=== PATIENT | female | born 1990 | race Caucasian/White ===

== ENCOUNTER 2019-03-01 13:49 | Inpatient (IN) | payer MEDICAID, OTHER ==
[~2019-03-01] VITALS: Ht 162.6 cm; Wt 107.5 kg
[~2019-03-01 13:49] MED LIST: AMOX500C2 PO; HYDR-4011 PO
[2019-03-01 14:40] VITALS: Ht 162.6 cm; Wt 107.5 kg
[2019-03-01] MEDS ORDERED: SOD CHLORIDE 0.9% 1,000 ML IV STA (15:20)
[2019-03-01] MEDS ORDERED: KETOROLAC 30 MG INJ IV STA (15:20)
--- NOTE | 2019-03-01 15:29 | ERD ---
ER Documentation Chief Complaint Chief Complaint c/o lower back pain x1 day. Denies injury HPI 28-year-old female presents with complaint of lower back pain, dysuria, and hematuria for the past day. States that the back pain is located mostly in the right flank area. States that the pain was very intense this morning she was unable to get out of bed. States the pain is currently 7 out of 10. States that she had a fever yesterday but denies any current fever. Denies any treatments. Denies any vomiting, diarrhea, abdominal pain. ROS All systems reviewed and are negative except as per history of present illness. Medications Home Meds Active Scripts Hydrocodone/Acetaminophen ([place] 5-325 Tablet) 1 Each Tablet, 1 TAB PO Q6H PRN for PAIN, #7 TAB Prov:POLLY WAN PA-C 06/19/16 Amoxicillin* (Amoxicillin*) 500 Mg Cap, 500 MG PO TID for 7 Days, CAP Prov:POLLY WAN PA-C 06/19/16 Reported Medications [None] No Conflict Check 02/05/12 Allergies Allergies: Coded Allergies: No Known Drug Allergies (Verified Allergy, 07/07/13) Uncoded Allergies: NONE (Allergy, 02/05/12) PMhx/Soc Medical and Surgical Hx: pt denies Medical Hx, pt denies Surgical Hx History of Surgery: No Anesthesia Reaction: No Hx Neurological Disorder: No Hx Respiratory Disorders: No Hx Cardiac Disorders: No Hx Psychiatric Problems: No Hx Miscellaneous Medical Probl: No Hx Alcohol Use: No Hx Substance Use: No Hx Tobacco Use: No Smoking Status: Never smoker FmHx Family History: No diabetes, No coronary disease, No other Physical Exam Vitals Vital Signs Date Temp Pulse Resp B/P (MAP) Pulse Ox O2 O2 Flow FiO2 Time Delivery Rate 03/02/19 99.0 124 17 115/58 96 Room Air 02:42 (77) 03/02/19 99.7 126 18 110/55 96 Room Air 01:10 (73) 03/01/19 99.2 116 18 116/57 100 Room Air 18:01 (76) 03/01/19 98.7 110 20 116/54 100 14:40 (74) Physical Exam Const: No acute distress Head: Atraumatic Eyes: Normal Conjunctiva ENT: Normal External Ears, Nose and Mouth. Neck: Full range of motion. No meningismus. Resp: Clear to auscultation bilaterally Cardio: Regular rate and rhythm, no murmurs Abd: Soft, non tender, non distended. Normal bowel sounds Skin: No petechiae or rashes Back: Right-sided CVA tenderness. No midline tenderness. Ext: No cyanosis, or edema Neur: Awake and alert Psych: Normal Mood and Affect Result Diagram: 03/01/19 1538 03/01/19 1538 Results 24 hrs Laboratory Tests Test 03/01/19 15:38 03/01/19 15:44 03/01/19 18:05 03/01/19 20:11 White Blood Count 15.2 10^3/ul Red Blood Count 3.79 10^6/ul Hemoglobin 10.3 g/dl Hematocrit 31.1 % Mean Corpuscular 82.1 fl Volume Mean Corpuscular 27.2 pg Hemoglobin Mean Corpuscular 33.1 g/dl Hemoglobin Concent Red Cell 12.5 % Distribution Width Platelet Count 250 10^3/UL Mean Platelet 10.1 fl Volume Immature 1.500 % Granulocytes % Neutrophils % 84.5 % Lymphocytes % 5.1 % Monocytes % 8.6 % Eosinophils % 0.1 % Basophils % 0.2 % Nucleated Red 0.0 /100WBC Blood Cells % Immature 0.230 10^3/ul Granulocytes # Neutrophils # 12.8 10^3/ul Lymphocytes # 0.8 10^3/ul Monocytes # 1.3 10^3/ul Eosinophils # 0.0 10^3/ul Basophils # 0.0 10^3/ul Nucleated Red 0.0 10^3/ul Blood Cells # Urine Color GRISELDA Urine Clarity TURBID Urine pH 6.0 Urine Specific 1.011 [place] Urine Ketones TRACE mg/dL Urine Nitrite POSITIVE mg/dL Urine Bilirubin NEGATIVE mg/dL Urine Urobilinogen 1+ mg/dL Urine Leukocyte 3+ Ashley/ul Esterase Urine Microscopic 4 /HPF RBC Urine Microscopic > 182 /HPF WBC Urine Squamous MODERATE /HPF Epithelial Cells Urine Bacteria MANY /HPF Urine Hemoglobin 1+ mg/dL Urine Glucose 3+ mg/dL Urine Total 2+ mg/dl Protein Sodium Level 136 mmol/L Potassium Level 3.5 mmol/L Chloride Level 106 mmol/L Carbon Dioxide 22 mmol/L Level Anion Gap 8 Blood Urea 3 mg/dl Nitrogen Creatinine 0.44 mg/dl Est Glomerular > 60 mL/min Filtrat Rate mL/min Glucose Level 139 mg/dl Calcium Level 8.7 mg/dl Total Bilirubin 1.0 mg/dl Direct Bilirubin 0.00 mg/dl Indirect Bilirubin 1.0 mg/dl Aspartate Amino 19 IU/L Transf (AST/SGOT) Alanine 29 IU/L Aminotransferase ( ALT/SGPT) Alkaline 114 IU/L Phosphatase Total Protein 7.0 g/dl Albumin 3.5 g/dl Globulin 3.50 g/dl Albumin/Globulin 1.00 Ratio Beta HCG, 00849.0 mIU/ml Quantitative POC Beta HCG, POSITIVE Qualitative Lactic Acid Level 1.2 mmol/L 0.8 mmol/L Current Medications Medications Dose Sig/Lupillo Start Time Status Last (Trade) Ordered Route PRN Stop Time Admin Dose Reason Admin Ketorolac 30 mg ONCE STAT 03/01/19 DC Tromethamine IV 15:20 (Toradol) 03/01/19 15:52 Sodium 1,000 ml @ Q1H STAT 03/01/19 DC 03/01/19 Chloride 1,000 mls/hr IV 15:20 15:45 03/01/19 16:19 Ceftriaxone 50 ml @ ONCE ONCE 03/01/19 DC 03/01/19 Sodium 100 mls/hr IVPB 18:00 18:13 03/01/19 18:29 Morphine 2 mg ONCE STAT 03/01/19 DC 03/01/19 Sulfate IV 18:49 19:06 (morphine) 03/01/19 18:50 Ondansetron 4 mg BRIDGE ORDER 03/01/19 HCl (Zofran PRN IV 20:00 Inj) NAUSEA/VOMITI 03/02/19 19:59 NG 650 mg ER BRIDGE 03/01/19 03/02/19 Acetaminophen PRN PO 20:00 02:39 (Tylenol .MILD PAIN 03/02/19 19:59 Tab) 1-3 OR TEMP Procedures/MDM DIAGNOSTIC IMAGING REPORT Patient: VERNA KENNEDY : 1990 Age: 28 Sex: F MR #: [id number] DOS: 03/01/19 1554 Ordering MD: GLORIA ATKINS Location: FT Room/Bed: PROCEDURE: US OB. CLINICAL INDICATION: Flank pain TECHNIQUE: Multiple sonographic images of the pelvis and gravid uterus were obtained. The images were reviewed on a PACS workstation. COMPARISON: No prior studies are available for comparison. FINDINGS: Gestation: Single live intrauterine gestation. Cardiac activity: 150 beats per minute. Presentation: Breech Placenta: Location: Annular Appearance: No previa or abruption. Measurements: BPD = 7.6 cm, 30 weeks and 3 days HC = 28 cm, 30 weeks and 5 days AC = 29.7 cm, 33 weeks and 5 days FL = 6.1 cm, 31 weeks and 5 days Gestational Age: AUA estimated gestational age: 31 weeks 5 days AUA estimated date of delivery: 04/28/19 The EFW = 1986 g RPTAT: AA IMPRESSION: Single live intrauterine gestation of 31 weeks 5 days by ultrasound criteria. .Praveen Jiang MD, MD Date Time Electronically viewed and signed by .Praveen Jiang MD, on 03/01/2019 17:12 .S/ CC: GLORIA ATKINS [phone] MDM: There was concern for possible pyelonephritis versus nephrolithiasis so UA and CT were ordered. However, urine preg came back positive. CT was therefore canceled (and toradol) and abdominal ultrasound was performed which showed a fetus of gestational age of 31 weeks. Patient stated she had no idea that she was even . It was now determined that she was a female. In addition, UA was positive for UTI. Given patient's complaint of flank pain as well as white count there is concern for pyelonephritis. Patient does not appear to be in active labor at this time. Case was discussed with my supervising physician Dr. Silva and he stated that he would take over care of patient. Departure Diagnosis: Primary Impression: Pyelonephritis affecting Trimester: third trimester Qualified Codes: O23.03 - Infections of kidney in , third trimester Condition: Serious GLORIA ATKINS March 01, 2019 15:29
[2019-03-01] MEDS ORDERED: CEFTRIAXONE 1 GM/50 ML (PMX) 50 ML IVPB ONE (18:00)
[2019-03-01] MEDS ORDERED: morphine 2 MG INJ IV STA (18:49)
[2019-03-01] MEDS ORDERED: ACETAMINOPHEN 325 MG TAB PO PRN (20:00)
[2019-03-01] MEDS ORDERED: ONDANSETRON 4 MG INJ IV PRN (20:00)
--- NOTE | 2019-03-01 20:04 | QN ---
Documentation Comment I spoke with Dr. Fagan the OB doctor databases software consultant for admission to a OB bed for new onset at 31 weeks and acute pyelonephritis. MEGHANN GOULD MD March 01, 2019 20:04
[2019-03-02 02:42] VITALS: BP 115/58; PULSE 124; RESP 17
[2019-03-02] MEDS ORDERED: HYDROCODONE/APAP (5/325) TAB PO PRN (08:00)
[2019-03-02] MEDS ORDERED: SOD CHLORIDE 0.9% 1,000 ML IV SCH (09:00)
[2019-03-02] MEDS ORDERED: ACETAMINOPHEN 325 MG TAB PO PRN ×2 (09:00)
== END 2019-03-02 08:08 | disposition home or self-care (01) | DRG 833 ==
LOC: FTE 13:49 → L-D 19:33
PROVIDERS: ADMIT Obstetrics & Gynecology Obstetrics; ATTEND Obstetrics & Gynecology Obstetrics
DX: O23.03 Infections of kidney in pregnancy, third trimester (principal); O09.33 Supervision of pregnancy with insufficient antenatal care, third trimester; Z3A.31 31 weeks gestation of pregnancy
CPT/HCPCS: 36415; 76805; 80053; 81001; 81025; 83605; 84702; 85025; 87086; 96361; 96365; 96375; J0696; J2270; J7030

== ENCOUNTER 2019-03-02 03:27 | Inpatient (IN) | payer MEDICAID ==
[~2019-03-02] VITALS: Ht 157.5 cm; Wt 107.5 kg
[2019-03-02] MEDS ORDERED: SOD CHLORIDE 0.9% 1,000 ML IV ONE (05:30)
[2019-03-02] MEDS: SOD CHLORIDE 0.9% 1,000 ML IV SCH ×5 (06:30→20:54)
[2019-03-02] MEDS: PRENATAL VITAMIN PO SCH (09:29)
[2019-03-02] MEDS ORDERED: LACTATED RINGER'S 1,000 ML IV ONE (09:30)
[2019-03-02] MEDS: ACETAMINOPHEN 325 MG TAB PO PRN ×2 (09:30→15:46)
[2019-03-02 09:54] VITALS: Ht 157.5 cm; Wt 107.5 kg
--- NOTE | 2019-03-02 10:55 | HP ---
Date/Time of Note Date/Time of Note DATE: 03/02/19 TIME: 10:50 OB - History Hx of Present Free Text/Dictation 28-year-old G4, P3 female with history of x3 presented to emergency room with complaint of flank pain in the right side. She denies any leaking of fluid, vaginal bleeding or decreased movement. She was not aware that she is . Ultrasound in the emergency room she is 31 weeks and 5 days. Patient reports fever and chills. Exam was consistent with pyelonephritis and patient was admitted for treatment of pyelonephritis. Patient was admitted to antepartum service on labor and delivery. No care. : 4 Para: 3 Care: None Other Concerns: No care. Patient was unaware that she is Past Family/Social History * Past Medical, Surgical, Family and Obstetric Histories reviewed from chart. Patient denies any past medical history. Past surgical history significant for history of x3 Denies any allergy history Patient has never been a smoker, does not drink alcohol or using any drugs. OB Admission Exam Vital Signs Vital Signs Vital Signs Date Temp Pulse Resp B/P (MAP) Pulse Ox O2 O2 Flow FiO2 Time Delivery Rate 03/02/19 101.2 09:30 Physical Exam HEENT: WNL Heart: Rhythm Normal Lungs: Clear Abdomen: WNL (Gravid, fundal height consider gestational age by ultrasound) Extremities: Edema (1+ bilateral symmetric pitting edema) Cervical Dilatation: None Effacement: 0% Membranes: Intact Accelerations: Accelerations Present Decelerations: No Decelerations Varibility: Moderate Contractions on Admission: >10 Minutes Apart Intensity: Mild Last 72 hourBlood Glucose PROCEDURE: US OB biophysical profile. CLINICAL INDICATION: Decreased movements. No care. TECHNIQUE: Multiple sonographic images of the pelvis were obtained. The images were reviewed on a PACS workstation. COMPARISON: 03/01/2019 FINDINGS: Cervix is closed measuring 4.1 cm in length. There is a live intrauterine gestation. There is a normal amount of amniotic fluid with an SUSAN = 14.7 cm. Maximal volume pocket = 4.4 cm. Position: Cephalic. Cardiac activity is present with 137 beats per minute. The placenta is right lateral. No evidence of placenta previa or abruption. Biophysical profile: movement 2/2 tone 2/2. breathing 2/2 SUSAN 2/2 Total 88 IMPRESSION: Normal biophysical profile. RPTAT:AAJJ Last 72 hours Lab Results PROCEDURE: US OB biophysical profile. CLINICAL INDICATION: Decreased movements. No care. TECHNIQUE: Multiple sonographic images of the pelvis were obtained. The images were reviewed on a PACS workstation. COMPARISON: 03/01/2019 FINDINGS: Cervix is closed measuring 4.1 cm in length. There is a live intrauterine gestation. There is a normal amount of amniotic fluid with an SUSAN = 14.7 cm. Maximal volume pocket = 4.4 cm. Position: Cephalic. Cardiac activity is present with 137 beats per minute. The placenta is right lateral. No evidence of placenta previa or abruption. Biophysical profile: movement 2/2 tone 2/2. breathing 2/2 SUSAN 2/2 Total 8/8 IMPRESSION: Normal biophysical profile. RPTAT:AAJJ OB Assessment/Plan Other Assessment: IUP at 31 weeks and 5 days Right flank pain, fever, abnormal urine analysis Exam consistent with pyelonephritis No care No evidence of labor Patient was admitted to labor and delivery for management of pyelonephritis Urine was sent for culture and sensitivity Patient will receive antibiotic, Rocephin started. Continuous monitoring Consider blood culture if she spikes fever Adequate IV hydration labs Expect improvement of the symptoms within 24 to 48 hours after start IV antibiotics Expectant management. LEONIDES GOMEZ MD March 02, 2019 10:55
[2019-03-02] MEDS: CEFTRIAXONE 1 GM/50 ML (PMX) 50 ML IVPB SCH (17:49)
[2019-03-03] MEDS: ACETAMINOPHEN 325 MG TAB PO PRN ×4 (00:31→20:26)
[2019-03-03] MEDS: SOD CHLORIDE 0.9% 1,000 ML IV SCH ×3 (01:00→16:31)
[2019-03-03] MEDS: PRENATAL VITAMIN PO SCH (13:08)
[2019-03-03] MEDS: CEFTRIAXONE 1 GM/50 ML (PMX) 50 ML IVPB SCH (19:33)
[2019-03-04] MEDS: SOD CHLORIDE 0.9% 1,000 ML IV SCH ×4 (01:00→17:19)
[2019-03-04] MEDS: PRENATAL VITAMIN PO SCH (09:19)
--- NOTE | 2019-03-04 13:49 | QN ---
Documentation Comment 28-year-old 4 para 3 at 32 weeks and 1 day of gestation with estimated date of delivery April 28, 2019 Patient admitted for pyelonephritis currently on IV antibiotics Urine culture pending Urine tox positive for amphetamines Vital signs stable VS - Last 72 Hours, by Label Date Temp Pulse Resp B/P (MAP) Pulse Ox O2 O2 Flow FiO2 Time Delivery Rate 03/03/19 98.4 21:11 03/03/19 98.5 20:26 03/03/19 100.3 05:49 03/03/19 99.6 00:31 03/02/19 102.6 15:46 03/02/19 101.2 09:30 Hematology - 72 Hrs Test 03/02/19 09:55 Hematocrit 27.9 % (37.0-47.0) L Hemoglobin 9.1 g/dl (12.0-16.0) L Mean Corpuscular Hemoglobin 27.5 pg (29.0-33.0) L Mean Corpuscular Hemoglobin Concent 32.6 g/dl (32.0-37.0) Mean Corpuscular Volume 84.3 fl (82.0-101.0) Mean Platelet Volume 10.7 fl (7.4-10.4) H Platelet Count 186 10^3/UL (140-415) # Red Blood Count 3.31 10^6/ul (4.20-5.40) L Red Cell Distribution Width 12.8 % (11.5-14.5) White Blood Count 11.4 10^3/ul (4.8-10.8) #H PROCEDURE: US OB biophysical profile. CLINICAL INDICATION: decreased movements, pyelonephritis TECHNIQUE: Multiple sonographic images of the pelvis were obtained. The images were reviewed on a PACS workstation. COMPARISON: No prior studies are available for comparison. FINDINGS: There is a single live intrauterine gestation. Cardiac activity is present with 128 beats per minute. There is a vertex presentation. The placenta is posterior fundal. There is no evidence of placental abruption. SUSAN = 19.1 cm. Biophysical profile: movement 2/2 tone 2/2. breathing 2/2 SUSAN 2/2 Total 88 RPTAT: AA . IMPRESSION: Normal biophysical profile. . .Praveen Jiang MD, Date Time Electronically viewed and signed by .Praveen Jiang MD, on 03/04/2019 12 :50 .S/ CC: MICHELLE GARCIA MD [id number] Assessment and plan Continue with present management Social service consult pending MICHELLE GARCIA MD March 04, 2019 13:49
[2019-03-04] MEDS: CEFTRIAXONE 1 GM/50 ML (PMX) 50 ML IVPB SCH (19:36)
[2019-03-05] MEDS: SOD CHLORIDE 0.9% 1,000 ML IV SCH (02:35)
--- NOTE | 2019-03-05 07:57 | DS ---
Date/Time of Note Date/Time of Note DATE: 03/05/19 TIME: 07:55 Obstetrical Discharge Record Final Diagnosis Final Diagnosis: not delivered Other Final Diagnosis Pyelonephritis. Complications Infection (right pyelonephritis) Augmentation: No Induction: No Rupture of Membranes: No Condition on Discharge Physical Assessment Last Vitals: Afebrile. VSS Voiding: Yes Bowel Movement: Yes Breast: Soft, non-tender Fundus: Other (gravid) Abdomen and Incision: No CVAT either side. Calf Tenderness: No Patient Condition: VIRGILIO Pedro MD March 05, 2019 07:57
--- NOTE | 2019-03-05 07:58 | PD.PPDC ---
[facility] Discharge Instruction Condition [id number] Patient Condition: [id number] Fair Diet [id number] Diet: [id number] Resume Regular Diet Activity/Restrictions [id number] Activity: [id number] Normal Activity Follow-up Follow-up with Physician: 1, Week/Weeks Provider Information: Needs to find a care clinic as she has not had any care, as of yet. Return to clinic for [id number] [employer]PER[employer]OR Instructions: [id number] Fever greater than 101 Chills Worsening abdominal pain VIRGILIO MARSHALL MD March 05, 2019 07:58
[2019-03-05] MEDS ORDERED: NITR-58 PO (08:01)
== END 2019-03-05 08:57 | disposition home or self-care (01) | DRG 690 ==
LOC: OBT 03:27 → L-D 03:27 → OBT 03:28
PROVIDERS: ADMIT Obstetrics & Gynecology Obstetrics; ATTEND Obstetrics & Gynecology Obstetrics
DX: N12 Tubulo-interstitial nephritis, not specified as acute or chronic (principal); B96.20 Unspecified Escherichia coli [E. coli] as the cause of diseases classified elsewhere; O34.211 Maternal care for low transverse scar from previous cesarean delivery
CPT/HCPCS: 76775; 76817; 76818; 80307; 85025; 85610; 85730; 86592; 86703; 86762; 86850; 86900; 86901; 87086; 87340; 87536; J0696; J7030; J7120

== ENCOUNTER 2019-04-03 16:32 | Outpatient (CLI) | payer SELFPAY ==
[~2019-04-03 16:32] MED LIST changes: -AMOX500C2 PO; -HYDR-4011 PO; +NITR-58 PO
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
--- NOTE | 2019-04-03 20:35 | TRIAGE ---
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 Baseline Change Variability: Moderate 6-25 bpm Accelerations: 10X10 Decelerations: None Category: Category I Datetime: 03/02/2019 11:00 Labor Evaluation Frequency: 0 Monitor Mode: External Pattern: Normal: <= 5 Contractions in 10 Minutes Resting Tone [place]: Relaxed Heart Rate FHR Baseline Rate: LOSS OF INFORMATIONS,ACTIVE BABY Monitor Mode: External US Datetime: 03/02/2019 09:52 Labor Evaluation Frequency: 0 Monitor Mode: External Pattern: Normal: <= 5 Contractions in 10 Minutes Resting Tone [place]: Relaxed Heart Rate FHR Baseline Rate: 180 Monitor Mode: External US FHR Baseline Changes: No Baseline Change Variability: Moderate 6-25 bpm Accelerations: 10X10 Decelerations: None Category: Category I Datetime: 03/02/2019 08:34 Labor Evaluation Frequency: 0 Monitor Mode: External Pattern: Normal: <= 5 Contractions in 10 Minutes Resting Tone [place]: Relaxed Heart Rate FHR Baseline Rate: 170 Monitor Mode: External US FHR Baseline Changes: No Baseline Change Variability: Moderate 6-25 bpm Accelerations: 10X10 Decelerations: None Category: Category I Datetime: 03/02/2019 07:57 Assessment Type: Ongoing Assessment Maternal Assessment Level of Consciousness: Fully Conscious DTR's/Clonus: DTRs 2+; No Clonus Headache: Denies Blurred Vision: No Respiratory Effort: Unlabored; Regular Rhythm; Equal Expansion Breath Sounds, Left: Clear and Equal Breath Sounds, Right: Clear and Equal Nausea/Vomiting: Denies RUQ Epigastric Pain: Denies Lower Extremities Edema: None Degree: None Upper Extremities Edema: None Degree: None Facial Edema: None Fall Risk Assessment History of Falling: (0) No Secondary Diagnosis: (0) No Ambulatory Aid: (0) Bedrest/Nurse Assist IV Therapy: (20) Yes Gait: (0) Normal/Bedrest/Immobile Mental Status: (0) Oriented to Own Ability Fall Score: 20 Fall Risk Score Definition: No Risk: No action required Datetime: 03/02/2019 07:30 Stage of : Antepartum Temperature Route: Oral Monitor Mode: External Duration (sec)2399: 0 Resting Tone [place]: Relaxed Heart Rate FHR Baseline Rate: 170 Monitor Mode: External US FHR Baseline Changes: No Baseline Change Variability: Moderate 6-25 bpm Accelerations: Prolonged Decelerations: None Category: Category I Pain Assessment Pain Scale: 6 Pain Presence: Constant Pain Type: Ache Pain Location: Right Flank Pain Goal: 0 Datetime: 03/02/2019 07:00 Stage of : Antepartum Labor Evaluation Frequency: x3 Monitor Mode: External Duration (sec)2399: 40-100 Quality: Mild Pattern: Normal: <= 5 Contractions in 10 Minutes Resting Tone [place]: Relaxed Heart Rate FHR Baseline Rate: 145 Monitor Mode: External US Variability: Moderate 6-25 bpm Accelerations: 15X15 Datetime: 03/02/2019 06:17 EGA: 31.3 Datetime: 03/02/2019 06:00 Stage of : Antepartum Labor Evaluation Frequency: x1 Monitor Mode: External Duration (sec)2399: 80 Quality: Mild Pattern: Normal: <= 5 Contractions in 10 Minutes Resting Tone [place]: Relaxed Heart Rate FHR Baseline Rate: 140 Monitor Mode: External US Variability: Moderate 6-25 bpm Accelerations: 15X15 Decelerations: Variable Category: Category II Datetime: 03/02/2019 05:52 Stage of : Antepartum Datetime: 03/02/2019 05:11 Stage of : Antepartum Datetime: 03/02/2019 05:00 Stage of : Antepartum Labor Evaluation Frequency: x1 Monitor Mode: External Duration (sec)2399: 40 Quality: Mild Pattern: Normal: <= 5 Contractions in 10 Minutes Resting Tone [place]: Relaxed Heart Rate FHR Baseline Rate: 145 Monitor Mode: External US Variability: Moderate 6-25 bpm Accelerations: 15X15 Decelerations: None Category: Category I Datetime: 03/02/2019 04:13 Temperature Route: Oral Datetime: 03/02/2019 04:00 Stage of : Antepartum Labor Evaluation Frequency: x1 Monitor Mode: External Duration (sec)2399: 60 Quality: Mild Pattern: Normal: <= 5 Contractions in 10 Minutes Resting Tone [place]: Relaxed Heart Rate FHR Baseline Rate: 150 Monitor Mode: External US Variability: Moderate 6-25 bpm Accelerations: 15X15 Decelerations: None Category: Category I Datetime: 03/02/2019 03:15 Stage of : Antepartum Temperature Route: Oral Datetime: 03/02/2019 03:07 Time of Arrival: 03/02/2019 03:04 Arrived By: Stretcher Arrived From: Emergency Dept Datetime: 03/02/2019 03:04 Stage of : Antepartum
== END 2019-04-03 20:10 | disposition home or self-care (01) ==
LOC: OBT 16:32 → L-D 16:36 → OBT 20:10
PROVIDERS: ATTEND Obstetrics & Gynecology
DX: O26.893 Other specified pregnancy related conditions, third trimester (principal); M54.5 Low back pain; Z3A.36 36 weeks gestation of pregnancy
CPT/HCPCS: 76815; 76818; 85460; 86900; 86901; G0463

== ENCOUNTER 2019-04-09 00:43 | Outpatient (CLI) | payer MEDICAID ==
[~2019-04-09] VITALS: Ht 157.5 cm; Wt 118.4 kg
[2019-04-09 00:54] VITALS: Ht 157.5 cm; Wt 118.4 kg
[2019-04-09] MEDS ORDERED: PREN-93 PO (00:54)
[2019-04-09 00:55] VITALS: BP 116/59; PULSE 102; RESP 20
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
== END 2019-04-09 02:06 | disposition home or self-care (01) ==
LOC: OBT 00:43 → L-D 00:44 → OBT 02:06
PROVIDERS: ATTEND Obstetrics & Gynecology
DX: O26.893 Other specified pregnancy related conditions, third trimester (principal); R20.0 Anesthesia of skin; M54.9 Dorsalgia, unspecified; O24.410 Gestational diabetes mellitus in pregnancy, diet controlled; Z3A.36 36 weeks gestation of pregnancy
CPT/HCPCS: 76818; 81001; 87086; Z7500; G0463

== ENCOUNTER 2019-04-10 15:29 | Outpatient (CLI) | payer SELFPAY ==
[~2019-04-10] VITALS: Ht 157.5 cm; Wt 117.1 kg
[~2019-04-10 15:29] MED LIST changes: -NITR-58 PO; +PREN-93 PO
[2019-04-10 15:42] VITALS: Ht 157.5 cm; Wt 117.1 kg
[2019-04-10 15:43] VITALS: BP 114/56; PULSE 96; RESP 19
--- NOTE | 2019-04-10 18:02 | TRIAGE ---
OB Triage Datetime Report Generated by CPN: 04/10/2019 18:01 Datetime: 04/10/2019 17:19 Stage of : OB Triage Level of Consciousness: Keenly Alert, Responsive Frequency: 5UC/HR Monitor Mode: External Duration (sec)2399: 50-120 Quality: Mild Resting Tone [place]: Relaxed FHR Baseline Rate: 135 Monitor Mode: External US Variability: Moderate 6-25 bpm Accelerations: 15X15 Decelerations: None Category: Category I Pain Scale: 0 Pain Goal: 3 Membrane Status: Intact Vaginal Bleeding: None Datetime: 04/10/2019 15:46 Assessment Type: Triage Level of Consciousness: Keenly Alert, Responsive DTR's/Clonus: DTRs 2+; No Clonus Headache: Denies Blurred Vision: No Respiratory Effort: Unlabored; Regular Rhythm; Equal Expansion Breath Sounds, Left: Clear and Equal Breath Sounds, Right: Clear and Equal Nausea/Vomiting: Denies RUQ Epigastric Pain: Denies Lower Extremities Edema: None Degree: None Upper Extremities Edema: None Degree: None Facial Edema: None History of Falling: (0) No Secondary Diagnosis: (0) No Ambulatory Aid: (0) Bedrest/Nurse Assist IV Therapy: (0) No Gait: (0) Normal/Bedrest/Immobile Mental Status: (0) Oriented to Own Ability Fall Score: 0 Fall Risk Score Definition: No Risk: No action required Datetime: 04/10/2019 15:45 Time of Arrival: 04/10/2019 15:21 EGA: 37.0 Arrived By: Ambulatory Arrived From: Home Chief Complaint: GDM Movement: Present Contractions: Denies/Absent Rupture of Membranes: Denies Vaginal Bleeding: None Vaginal Discharge: Denies Recent Sexual Intercouse: Denies Abdominal Trauma: Not Applicable Patient Complaints: Other Time Provider Notified: 04/10/2019 17:16 Provider Notified: DEMAR Initial Plan: NST AND BPP FHR Baseline Rate: 145 Monitor Mode: External US Variability: Moderate 6-25 bpm Accelerations: 15X15 Decelerations: None Category: Category I Datetime: 04/10/2019 15:37 Monitor Mode: External Monitor Mode: External US Datetime: 04/09/2019 02:14 Frequency: 0 Monitor Mode: External Resting Tone [place]: Relaxed FHR Baseline Rate: 135 Monitor Mode: External US Variability: Moderate 6-25 bpm Accelerations: 15X15 Decelerations: None Category: Category I Datetime: 04/09/2019 01:41 Frequency: X1 Monitor Mode: External Duration (sec)2399: 40 Quality: Mild Pattern: Normal: <= 5 Contractions in 10 Minutes Resting Tone [place]: Relaxed FHR Baseline Rate: 130 Monitor Mode: External US Variability: Moderate 6-25 bpm Accelerations: 15X15 Decelerations: None Category: Category I
--- NOTE | 2019-04-10 22:45 | NSTRPT ---
NST Information Datetime Report Generated by CPN: 04/10/2019 22:44 Datetime: 04/10/2019 14:33 Test Number: - Reason for NST: Other Reason for NST Other: A1 Comments: Pt here for scheduled NST/SUSAN. MediCal not acitive at this time. Pt told to go to triage for evaluation for today and rescheduled appt for Chidi, 7/5 at 1300 Datetime: 04/07/2019 14:12 NST Information EGA: 36.4 Test Number: 3 Time on Monitor: 04/07/2019 14:50 Time off Monitor: 04/07/2019 15:13 NST Duration (Min): 23 Reason for NST: Diabetes Mellitus; Other Reason for NST Other: A1DM Test and Monitor Explained: Monitor Explained; Test Explained; Verbalized Understanding Pulse: 101 Resp: 18 SBP: 108 DBP: 64 Test Evaluation NST Interventions: None Patient States Movement: Present Contraction Frequency: x3/40-50/mild/pain level 0 FHR Baseline : 125 Variability: Moderate 6-25bpm Accelerations: 15X15 Decelerations: None FHR Category: Category I NST Results: Reactive Provider Notified: Dr Duncan re FBS 126 Comments: To u/s SUSAN 18.2 cm cephalic FBS 126, pt scheduled for diabetes class on 04/10. Instructed to bring accucheck log Electronically Signed By E-Signature: with User ID: [id number] Datetime: 04/05/2019 15:15 NST Information EGA: 36.2 Test Number: 2 Time on Monitor: 04/05/2019 15:34 Time off Monitor: 04/05/2019 15:55 NST Duration (Min): 21 Reason for NST: Diabetes Mellitus Reason for NST Other: A1DM Test and Monitor Explained: Monitor Explained; Test Explained; Verbalized Understanding Pulse: 77 Resp: 18 SBP: 113 DBP: 58 Test Evaluation NST Interventions: None Patient States Movement: Present Contraction Frequency: x2/50/mild/pain level 0 FHR Baseline : 130 Variability: Moderate 6-25bpm Accelerations: 15X15 Decelerations: None FHR Category: Category I NST Results: Reactive Comments: TO US SUSAN 18.5 CM CEPHALIC FBS 116-pt missed the diabetes class on 04/03, rescheduled for 04/10-instructed to bring her accuchec k log on 04/[address] Duncan. Pt states she is not taking any meds for diabetes Electronically Signed By E-Signature: with User ID: [id number] Datetime: 03/31/2019 15:03 NST Information EGA: 35.4 NST Duration (Min): 29
--- NOTE | 2019-04-25 14:28 | PN ---
Triage Information Date/Time Reason for visit: scheduled NST Weeks of Gestation 37 /Para 1/0 Diabetes: pre-gestational Diabetes management: diet controlled Hypertention: none Objective Heart Rate: 140's Contractions: None Disposition: Discharge DOMINIQUE BENZ MD Apr 25, 2019 14:28
== END 2019-04-10 17:55 | disposition left against medical advice (07) ==
LOC: OBT 15:29 → L-D 15:31 → OBT 17:55
PROVIDERS: ATTEND Obstetrics & Gynecology
DX: Z53.21 Procedure and treatment not carried out due to patient leaving prior to being seen by health care provider (principal); O24.410 Gestational diabetes mellitus in pregnancy, diet controlled; Z3A.37 37 weeks gestation of pregnancy
CPT/HCPCS: 76818; G0463

== ENCOUNTER 2019-04-13 12:29 | Outpatient (CLI) | payer SELFPAY ==
[~2019-04-13] VITALS: Ht 157.5 cm; Wt 116.1 kg
[2019-04-13 12:57] VITALS: BP 106/54; PULSE 100; Ht 157.5 cm; Wt 116.1 kg
--- NOTE | 2019-04-13 15:15 | PN ---
Triage Information Date/Time Reason for visit: diabetes Weeks of Gestation 35 /Para 1/0 Diabetes: gestational Objective Vital Signs Date Temp Pulse Resp B/P (MAP) Pulse Ox O2 O2 Flow FiO2 Time Delivery Rate 04/13/19 98.2 100 106/54 12:57 (71) Heart Rate: 140's Contractions: >10 Minutes Apart Results/Medications Results 24 hrs Laboratory Tests Test 04/13/19 13:00 Bedside Glucose 111 Disposition: Discharge DOMINIQUE BENZ MD Apr 13, 2019 15:15
--- NOTE | 2019-04-13 16:02 | TRIAGE ---
OB Triage Datetime Report Generated by CPN: 04/13/2019 16:02 Datetime: 04/13/2019 14:23 Stage of : OB Triage Datetime: 04/13/2019 14:03 Labor Evaluation Frequency: 1 Monitor Mode: External Duration (sec)2399: 60 Quality: Mild Pattern: Normal: <= 5 Contractions in 10 Minutes Resting Tone [place]: Relaxed Heart Rate FHR Baseline Rate: 125 Monitor Mode: External US Variability: Moderate 6-25 bpm Accelerations: 10X10 Decelerations: None Category: Category I Pain Assessment Pain Scale: 0 Pain Presence: None/Denies Pain Type: N/A Pain Goal: 3 Pain Relief Measures: Comfort Measures Datetime: 04/13/2019 13:01 Bedside Blood Glucose: 111 Datetime: 04/13/2019 12:53 Stage of : OB Triage Assessment Type: Triage Maternal Assessment Level of Consciousness: Keenly Alert, Responsive DTR's/Clonus: DTRs 2+; No Clonus Headache: Denies Blurred Vision: No Respiratory Effort: Unlabored; Regular Rhythm; Equal Expansion Breath Sounds, Left: Clear and Equal Breath Sounds, Right: Clear and Equal Nausea/Vomiting: Denies RUQ Epigastric Pain: Denies Facial Edema: None Temperature Route: Axillary Fall Risk Assessment History of Falling: (0) No Secondary Diagnosis: (0) No Ambulatory Aid: (0) Bedrest/Nurse Assist IV Therapy: (0) No Gait: (0) Normal/Bedrest/Immobile Mental Status: (0) Oriented to Own Ability Fall Score: 0 Fall Risk Score Definition: No Risk: No action required Labor Evaluation Frequency: 0 Monitor Mode: External Pattern: Normal: <= 5 Contractions in 10 Minutes Resting Tone [place]: Relaxed Heart Rate FHR Baseline Rate: 125 Monitor Mode: External US Variability: Moderate 6-25 bpm Accelerations: 10X10 Decelerations: None Pain Assessment Pain Scale: 0 Pain Presence: None/Denies Pain Type: N/A Pain Goal: 3 Pain Relief Measures: Comfort Measures Datetime: 04/13/2019 12:52 Time of Arrival: 04/13/2019 12:25 EGA: 37.3 Arrived By: Ambulatory Arrived From: Home Chief Complaint: BIWEEKLY NST/BPP FOR GDM, DENIES BLEEDING, LEAKING OR UC'S Movement: Present Contractions: Denies/Absent Rupture of Membranes: Denies Vaginal Bleeding: None Vaginal Discharge: Denies Recent Sexual Intercouse: Denies Abdominal Trauma: Not Applicable Patient Complaints: None Time Provider Notified: 04/13/2019 14:06 Provider Notified: DEMAR Initial Plan: MONITOR, BPP, NST Datetime: 04/10/2019 15:46 Fall Score: 0 Fall Risk Score Definition: No Risk: No action required Datetime: 04/10/2019 15:45 EGA: 37.0 Datetime: 04/09/2019 00:58 Fall Score: 0 Fall Risk Score Definition: No Risk: No action required Datetime: 04/09/2019 00:56 EGA: 36.6 Datetime: 04/03/2019 16:45 Fall Score: 0 Fall Risk Score Definition: No Risk: No action required Datetime: 04/03/2019 16:29 EGA: 36.0 Datetime: 03/31/2019 15:53 EGA: 36.0 Datetime: 03/04/2019 20:00 Fall Score: 20 Fall Risk Score Definition: No Risk: No action required Datetime: 03/04/2019 07:47 Fall Score: 20 Fall Risk Score Definition: No Risk: No action required Datetime: 03/03/2019 20:05 Fall Score: 20 Fall Risk Score Definition: No Risk: No action required Datetime: 03/03/2019 08:05 Fall Score: 20 Fall Risk Score Definition: No Risk: No action required Datetime: 03/02/2019 20:00 Fall Score: 20 Fall Risk Score Definition: No Risk: No action required Datetime: 03/02/2019 07:57 Fall Score: 20 Fall Risk Score Definition: No Risk: No action required Datetime: 03/02/2019 06:17 EGA: 31.3
== END 2019-04-13 15:20 | disposition home or self-care (01) ==
LOC: OBT 12:29 → L-D 12:32 → OBT 15:20
PROVIDERS: ATTEND Obstetrics & Gynecology
DX: O24.419 Gestational diabetes mellitus in pregnancy, unspecified control (principal); Z3A.35 35 weeks gestation of pregnancy
CPT/HCPCS: 76818; 82962; G0463

== ENCOUNTER 2019-04-15 00:45 | Outpatient (CLI) | payer SELFPAY ==
[~2019-04-15] VITALS: Ht 157.5 cm; Wt 117.3 kg
[2019-04-15 01:09] VITALS: Ht 157.5 cm; Wt 117.3 kg
[2019-04-15 01:10] VITALS: BP 105/67; PULSE 93; RESP 18
[2019-04-15] MEDS ORDERED: ACETAMINOPHEN 500 MG TAB PO ONE (01:16)
--- NOTE | 2019-04-15 04:23 | TRIAGE ---
OB Triage Datetime Report Generated by CPN: 04/15/2019 04:22 Datetime: 04/15/2019 02:03 Comments: U/S TECH AT BEDSIDE Datetime: 04/15/2019 02:02 Labor Evaluation Frequency: X3 Monitor Mode: External Duration (sec)2399: 30-40 Quality: Mild Pattern: Normal: <= 5 Contractions in 10 Minutes Resting Tone [place]: Relaxed Heart Rate FHR Baseline Rate: 135 Monitor Mode: External US Variability: Moderate 6-25 bpm Accelerations: 15X15 Decelerations: None Category: Category I Datetime: 04/15/2019 02:00 Labor Evaluation Frequency: none Monitor Mode: External Quality: Mild Pattern: Normal: <= 5 Contractions in 10 Minutes Resting Tone [place]: Relaxed Heart Rate FHR Baseline Rate: 135 Monitor Mode: External US FHR Baseline Changes: No Baseline Change Variability: Moderate 6-25 bpm Accelerations: 15X15 Decelerations: None Category: Category I Datetime: 04/15/2019 01:13 Assessment Type: Triage Maternal Assessment Level of Consciousness: Keenly Alert, Responsive DTR's/Clonus: DTRs 2+; No Clonus Headache: Denies Blurred Vision: No Respiratory Effort: Unlabored; Regular Rhythm; Equal Expansion Breath Sounds, Left: Clear and Equal Breath Sounds, Right: Clear and Equal Nausea/Vomiting: Denies RUQ Epigastric Pain: Denies Facial Edema: None Fall Risk Assessment History of Falling: (0) No Secondary Diagnosis: (0) No Ambulatory Aid: (0) Bedrest/Nurse Assist IV Therapy: (0) No Gait: (0) Normal/Bedrest/Immobile Mental Status: (0) Oriented to Own Ability Fall Score: 0 Fall Risk Score Definition: No Risk: No action required Datetime: 04/15/2019 01:12 Time of Arrival: 04/15/2019 00:39 EGA: 37.5 Arrived By: Wheelchair Arrived From: Home Chief Complaint: fell at 2100, landed on knees, no abd trauma Movement: Present Contractions: Denies/Absent Rupture of Membranes: Denies Vaginal Bleeding: None Vaginal Discharge: Denies Recent Sexual Intercouse: Denies Abdominal Trauma: Fall Additional Patient Complaints: lower abd and groin pain Time Provider Notified: 04/15/2019 00:44 Provider Notified: ARDALAN Datetime: 04/15/2019 01:04 Pain Assessment Pain Scale: 7 Pain Presence: Constant Pain Type: Ache Pain Location: Abdomen; Right Groin; Left Groin Pain Goal: 5 Pain Relief Measures: Comfort Measures Datetime: 04/13/2019 12:53 Fall Score: 0 Fall Risk Score Definition: No Risk: No action required Datetime: 04/13/2019 12:52 EGA: 37.3 Datetime: 04/10/2019 15:46 Fall Score: 0 Fall Risk Score Definition: No Risk: No action required Datetime: 04/10/2019 15:45 EGA: 37.0 Datetime: 04/09/2019 00:58 Fall Score: 0 Fall Risk Score Definition: No Risk: No action required Datetime: 04/09/2019 00:56 EGA: 36.6 Datetime: 04/03/2019 16:45 Fall Score: 0 Fall Risk Score Definition: No Risk: No action required Datetime: 04/03/2019 16:29 EGA: 36.0 Datetime: 03/31/2019 15:53 EGA: 36.0 Datetime: 03/04/2019 20:00 Fall Score: 20 Fall Risk Score Definition: No Risk: No action required Datetime: 03/04/2019 07:47 Fall Score: 20 Fall Risk Score Definition: No Risk: No action required Datetime: 03/03/2019 20:05 Fall Score: 20 Fall Risk Score Definition: No Risk: No action required Datetime: 03/03/2019 08:05 Fall Score: 20 Fall Risk Score Definition: No Risk: No action required Datetime: 03/02/2019 20:00 Fall Score: 20 Fall Risk Score Definition: No Risk: No action required Datetime: 03/02/2019 07:57 Fall Score: 20 Fall Risk Score Definition: No Risk: No action required Datetime: 03/02/2019 06:17 EGA: 31.3
--- NOTE | 2019-04-15 05:06 | PN ---
Triage Information Date/Time April 15/2019 Reason for visit: Weeks of Gestation 37 weeks and 5 days /Para 4 para 3 Diabetes: none Hypertention: none Additional information 28-year-old G4, P3 with IUP at 37 weeks and 5 days, here today for evaluation after she fell today at 2100 p.m. Patient reports she landed on her knees with her legs wide open. She denies any direct trauma to her abdomen. She denies any leaking of fluid, vaginal bleeding or decreased movement or contrac tions. Antepartum course complicated by GDM A1 diet-controlled currently being followed by NST/BPP twice a week Objective Vital Signs Date Temp Pulse Resp B/P (MAP) Pulse Ox O2 O2 Flow FiO2 Time Delivery Rate 04/15/19 98.6 93 18 105/67 Room Air 01:10 (80) Heart Rate: 130's Heart Rate Comments Category 1 Contractions: None Exam General appearance: Alert and oriented x4 does not appear to be in any acute distress Abdomen: Soft, gravid, fundal height consider gestational age NST: Category 1 BPP: 8/8 SUSAN: 20.1 Results/Medications Imaging Results AMENDMENT: 04/15/2019 3:32:43 AM Edward Garcia M.d The placenta is posterior without evidence for placenta previa or abruption. PROCEDURE: ULTRASOUND BIOPHYSICAL PROFILE CLINICAL INDICATION: 28-year-old female with trauma for viability. TECHNIQUE: Multiple sonographic images were obtained in order to perform a biophysical profile The images were reviewed on a PACS workstation. COMPARISON: Ultrasound biophysical profile April 13, 2019. FINDINGS: There is a single viable intrauterine gestation. There is a vertex presentation. Cardiac activity is present at 129 beats per minute. The placenta is posterior. The results of the biophysical profile are as follows: breathing movement = 2/2 Gross body movement = 2/2 tone = 2/2 Qualitative amniotic fluid volume = 2/2 Amniotic fluid index equals 20.1 cm. The maximal vertical pocket is 8.0 cm. This yields a biophysical profile score of 8/8. IMPRESSION: Biophysical profile score is 8/8. Disposition: Discharge Assessment/Plan IUP at 37 weeks and 5 days Status post fall No evidence of abruption Ultrasound within normal limits. testing reassuring No evidence of labor GDM, A1 diet-controlled Patient being followed up by NST/PV twice a week Discharge home in stable condition Advised patient to return back to triage in 3 days for NST/BPP Strict labor precautions kick count and follow-up with her appointments and OB visit as well as follow-up with NST twice a week discussed with patient Patient verbalized understanding. All questions were answered to patient with satisfaction. LEONIDES GOMEZ MD Apr 15, 2019 05:06
== END 2019-04-15 04:15 | disposition home or self-care (01) ==
LOC: OBT 00:45 → L-D 00:47 → OBT 04:15
PROVIDERS: ATTEND Obstetrics & Gynecology
DX: O26.893 Other specified pregnancy related conditions, third trimester (principal); Z3A.37 37 weeks gestation of pregnancy; S89.90XA Unspecified injury of unspecified lower leg, initial encounter; X58.XXXA Exposure to other specified factors, initial encounter
CPT/HCPCS: 76818; G0463

== ENCOUNTER 2019-04-17 16:19 | Outpatient (CLI) | payer SELFPAY ==
[~2019-04-17] VITALS: Ht 157.5 cm; Wt 119.1 kg
[2019-04-17 17:07] VITALS: Ht 157.5 cm; Wt 119.1 kg
[2019-04-17 17:08] VITALS: BP 116/56; PULSE 100
--- NOTE | 2019-04-17 18:58 | PN ---
Triage Information Date/Time Subjective: 28 year-old at 38 weeks gestation presents for BPP NST for gestational diabetes A1. Objective: Vitals: 116/5 General: No apparent distress Abdomen: []Gravid Electronic moniter: Category 1/140/moderate variability/positive accelerations/no decelerations Assessment/Plan: 1. Gestational diabetes [id number] current management Disposition: discharge to home Reason for visit: Weeks of Gestation 38 /Para 4/3 Objective Vital Signs Date Temp Pulse Resp B/P (MAP) Pulse Ox O2 O2 Flow FiO2 Time Delivery Rate 04/17/19 98.3 100 116/56 17:08 (76) Results/Medications Results 24 hrs Laboratory Tests Test 04/17/19 17:00 Bedside Glucose 114 KORIN VELASQUEZ MD Apr 17, 2019 18:58
--- NOTE | 2019-04-18 00:20 | TRIAGE ---
OB Triage Datetime Report Generated by CPN: 04/17/2019 19:06 Datetime: 04/17/2019 18:52 Stage of : OB Triage Datetime: 04/17/2019 17:53 Labor Evaluation Frequency: 0 Monitor Mode: External Pattern: Normal: <= 5 Contractions in 10 Minutes Resting Tone [place]: Relaxed Heart Rate FHR Baseline Rate: 135 Monitor Mode: External US Variability: Moderate 6-25 bpm Accelerations: 10X10 Decelerations: None Category: Category I Pain Assessment Pain Scale: 0 Pain Presence: None/Denies Pain Type: N/A Pain Goal: 3 Pain Relief Measures: Comfort Measures Datetime: 04/17/2019 17:08 Stage of : OB Triage Datetime: 04/17/2019 17:02 Stage of : OB Triage Assessment Type: Triage Maternal Assessment Level of Consciousness: Keenly Alert, Responsive DTR's/Clonus: DTRs 2+; No Clonus Headache: Denies Blurred Vision: No Respiratory Effort: Unlabored; Regular Rhythm; Equal Expansion Breath Sounds, Left: Clear and Equal Breath Sounds, Right: Clear and Equal Nausea/Vomiting: Denies RUQ Epigastric Pain: Denies Facial Edema: None Temperature Route: Axillary Bedside Blood Glucose: 114 Fall Risk Assessment History of Falling: (0) No Secondary Diagnosis: (0) No Ambulatory Aid: (0) Bedrest/Nurse Assist IV Therapy: (0) No Gait: (0) Normal/Bedrest/Immobile Mental Status: (0) Oriented to Own Ability Fall Score: 0 Fall Risk Score Definition: No Risk: No action required Labor Evaluation Frequency: 0 Monitor Mode: External Pattern: Normal: <= 5 Contractions in 10 Minutes Resting Tone [place]: Relaxed Heart Rate FHR Baseline Rate: 135 Monitor Mode: External US Variability: Moderate 6-25 bpm Accelerations: 10X10 Decelerations: None Category: Category I Pain Assessment Pain Scale: 0 Pain Presence: None/Denies Pain Type: N/A Pain Goal: 3 Pain Relief Measures: Comfort Measures Datetime: 04/17/2019 17:01 Time of Arrival: 04/17/2019 15:59 EGA: 38.0 Arrived By: Ambulatory Arrived From: Home Chief Complaint: F/U NST/BPP FOR GDM, DENIES LEAKING, BLEEDING OR UC'S Movement: Present Contractions: Denies/Absent Rupture of Membranes: Denies Vaginal Bleeding: None Vaginal Discharge: Denies Recent Sexual Intercouse: Denies Abdominal Trauma: Not Applicable Patient Complaints: None Time Provider Notified: 04/17/2019 17:10 Provider Notified: DEMAR Initial Plan: MONITOR, BPP Datetime: 04/15/2019 03:00 Labor Evaluation Frequency: 0 Monitor Mode: External Resting Tone [place]: Relaxed Heart Rate FHR Baseline Rate: 120 Monitor Mode: External US Variability: Moderate 6-25 bpm Accelerations: 15X15 Decelerations: None Category: Category I Comments: REVIEWED BY MD Datetime: 04/15/2019 01:13 Fall Score: 0 Fall Risk Score Definition: No Risk: No action required Datetime: 04/15/2019 01:12 EGA: 37.5 Datetime: 04/13/2019 12:53 Fall Score: 0 Fall Risk Score Definition: No Risk: No action required Datetime: 04/13/2019 12:52 EGA: 37.3 Datetime: 04/10/2019 15:46 Fall Score: 0 Fall Risk Score Definition: No Risk: No action required Datetime: 04/10/2019 15:45 EGA: 37.0 Datetime: 04/09/2019 00:58 Fall Score: 0 Fall Risk Score Definition: No Risk: No action required Datetime: 04/09/2019 00:56 EGA: 36.6 Datetime: 04/03/2019 16:45 Fall Score: 0 Fall Risk Score Definition: No Risk: No action required Datetime: 04/03/2019 16:29 EGA: 36.0 Datetime: 03/31/2019 15:53 EGA: 36.0 Datetime: 03/04/2019 20:00 Fall Score: 20 Fall Risk Score Definition: No Risk: No action required Datetime: 03/04/2019 07:47 Fall Score: 20 Fall Risk Score Definition: No Risk: No action required Datetime: 03/03/2019 20:05 Fall Score: 20 Fall Risk Score Definition: No Risk: No action required Datetime: 03/03/2019 08:05 Fall Score: 20 Fall Risk Score Definition: No Risk: No action required Datetime: 03/02/2019 20:00 Fall Score: 20 Fall Risk Score Definition: No Risk: No action required Datetime: 03/02/2019 07:57 Fall Score: 20 Fall Risk Score Definition: No Risk: No action required Datetime: 03/02/2019 06:17 EGA: 31.3
== END 2019-04-17 18:59 | disposition home or self-care (01) ==
LOC: OBT 16:19 → L-D 16:20 → OBT 18:59
PROVIDERS: ATTEND Obstetrics & Gynecology
DX: O24.419 Gestational diabetes mellitus in pregnancy, unspecified control (principal); O36.8330 Maternal care for abnormalities of the fetal heart rate or rhythm, third trimester, not applicable or unspecified; Z3A.38 38 weeks gestation of pregnancy
CPT/HCPCS: 76818; 82962; G0463